=== PATIENT | male | born 2000 | race Asian ===

== ENCOUNTER 2023-11-15 23:33 | Emergency (ER) | payer SELFPAY ==
[~2023-11-15] VITALS: Ht 177.8 cm; Wt 68.0 kg
[2023-11-15 23:52] VITALS: O2SAT 99
[2023-11-16] MEDS: BACITRACIN ZINC OINT UDPKT TOP ONE (04:45)
[2023-11-16] MEDS: LIDOCAINE HCL/PF 1% 10 MG/ML 5ML VIAL INFIL ONE (04:45)
[2023-11-16 05:28] VITALS: BP 131/86; PULSE 98; RESP 18; TEMP 98.7
== END 2023-11-16 05:31 | disposition home or self-care (01) ==
LOC: ER 23:33
DX: S01.81XA Laceration without foreign body of other part of head, initial encounter (principal); X58.XXXA Exposure to other specified factors, initial encounter; Y93.89 Activity, other specified; Y92.89 Other specified places as the place of occurrence of the external cause; Y99.8 Other external cause status
CPT/HCPCS: 12011; 99282; J3490; Z7610 ×2